=== PATIENT | female | born 1975 | race African-American/Black ===

== ENCOUNTER 2016-10-25 10:15 | Emergency (ER) | payer SELFPAY ==
[~2016-10-25] VITALS: Ht 157.5 cm; Wt 64.0 kg
[~2016-10-25 10:15] MED LIST: BACT800T5 PO; DAPA1TAB2 PO; LANTUS2P SQ
[2016-10-25 10:17] VITALS: BP 119/78; PULSE 89; RESP 14; TEMP 98.1; O2SAT 99
[2016-10-25] MEDS ORDERED: IBUPROFEN 600 MG TAB PO ONE (11:00)
[2016-10-25] MEDS ORDERED: LANTUS2P SQ ×2 (11:05→11:49)
[2016-10-25 11:09] LABS: AUTOMATED NEUTROPHIL # 3.8 TH/MM3 (1.8-7.7); BASOPHIL % 0.8 % (0.0-2.0); EOSINOPHIL % 0.5 % (0.0-4.0); HEMATOCRIT 38.9 % (35.0-46.0); HEMO FLAGS DIFF FINAL; LYMPH % 27.1 % (9.0-44.0); LYMPHOCYTE # 1.6 TH/MM3 (1.0-4.8); MEAN CELL VOLUME 82.1 FL (80.0-100.0); MEAN CORPUSCULAR HEMOGLOBIN 27.6 PG (27.0-34.0); MEAN CORPUSCULAR HGB CONC 33.6 % (32.0-36.0); MONO % 6.3 % (0.0-8.0); NEUT % 65.3 % (16.0-70.0); PLATELET COUNT 250 TH/MM3 (150-450); RED BLOOD COUNT 4.74 MIL/MM3 (4.00-5.30); RED CELL DISTRIBUTION WIDTH 12.7 % (11.6-17.2); WHITE BLOOD COUNT 5.8 TH/MM3 (4.0-11.0)
[2016-10-25 11:11] LABS: BACTERIA, URINE FEW /hpf; BLOOD, URINE SMALL (NEG); COMMENT (UR) CULTURE INDICATED; CULTURE IF INDICATED CULTURE INDICATED; GLUCOSE,URINE 1000 mg/dL (NEG); KETONE, URINE TRACE mg/dL (NEG); MUCUS URINE FEW /lpf (OCC); NITRITE,URINE NEG (NEG); SQUAMOUS EPITHELIAL CELL URINE 1 /hpf (0-5); URINE COLOR LIGHT-YELLOW (YELLW/STRAW)
[2016-10-25] MEDS ORDERED: CIPR-9 PO (11:44)
--- NOTE | 2016-10-25 11:44 | PD ---
HPI Chief Complaint: Related Problem Time Seen by Provider: 10:41 Travel History International Travel<30 days: No Contact w/Intl Traveler<30days: No Traveled to known affect area: No History of Present Illness HPI Patient is a 41 year old female who comes in complaining of vaginal bleeding. She says that she has had bleeding on and off since July. She reports taking a test a few weeks ago and says it was positive then. She complains of low back pain and lower abdominal pain. She denies any nausea or vomiting, fever or chills. She says she feels lightheaded when she stands up. She denies chest pain, palpitations, SOB. She has had a tubal ligation, but says she had a miscarriage in May. She says she has been feeling down lately since her son . She denies any SI or HI. PFSH Past Medical History Arthritis: Yes (POSSIBLE RA) Asthma: No Autoimmune Disease: No Blood Disorders: No Anxiety: No Depression: No Cancer: No Cardiovascular Problems: No Chemotherapy: No Diabetes: Yes Diminished Hearing: No Endocrine: Yes Glaucoma: No Genitourinary: No Headaches: No Hypertension: No Immune Disorder: No Implanted Vascular Access Dvce: No Kidney Stones: Yes Musculoskeletal: No Neurologic: Yes (neuropathy) Psychiatric: No Reproductive: No Respiratory: No Immunizations Current: Yes Migraines: No Radiation Therapy: No Renal Failure: No Seizures: No Sickle Cell Disease: No Thyroid Disease: No PNEUMOCCOCAL Vaccine (Year): 2 ?: Menopausal: No : 5 Para: 4 Miscarriage: 1 : 0 Ovarian Cysts: Yes Tubal Ligation: Yes Past Surgical History Abdominal Surgery: Yes AICD: No Cardiac Surgery: No Section: Yes (X 1) Ear Surgery: No Endocrine Surgery: No Eye Surgery: No Genitourinary Surgery: No Gynecologic Surgery: Yes ( ) Neurologic Surgery: No Oral Surgery: No Pacemaker: No Thoracic Surgery: No Other Surgery: No Social History Alcohol Use: Yes (OCCASSIONAL ) Tobacco Use: No Substance Use: Yes (HX MARIJUANA ) Allergies-Medications (Allergen,Severity, Reaction): Coded Allergies: No Known Allergies (Verified , 10/25/16) Reported Meds & Prescriptions Reported Meds & Active Scripts Active Cipro (Ciprofloxacin HCl) 500 Mg Tab 500 Mg PO BID 5 Days Reported Lantus Inj (Insulin Glargine) 1,000 Unit/10 Ml Vial 35 Units SQ HS Review of Systems Except as stated in HPI: all other systems reviewed are Neg General / Constitutional: No: Fever, Chills Eyes: No: Blurred Vision HENT: Positive: Lightheadedness, No: Headaches Cardiovascular: No: Chest Pain or Discomfort, Palpitations Respiratory: No: Shortness of Breath Gastrointestinal: Positive: Abdominal Pain, No: Nausea, Vomiting Genitourinary: Positive: Vaginal Bleeding Musculoskeletal: Positive: Pain Skin: No Rash, No Change in Pigmentation Neurologic: No: Weakness Physical Exam Narrative GENERAL: Awake and alert, in no acute distress. SKIN: Focused skin assessment warm/dry. HEAD: Atraumatic. Normocephalic. EYES: Pupils equal and round. No scleral icterus. Conjunctiva do not appear pale. ENT: Mucous membranes pink and moist. NECK: Trachea midline. No JVD. CARDIOVASCULAR: Regular rate and rhythm. No murmur appreciated. RESPIRATORY: No accessory muscle use. Clear to auscultation. Breath sounds equal bilaterally. GASTROINTESTINAL: Abdomen soft, nondistended. Mild suprapubic tenderness, no rebound or guarding. No CVA tenderness. : Small amount of active bleeding, no CMT. MUSCULOSKELETAL: No obvious deformities. No clubbing. No cyanosis. No edema. NEUROLOGICAL: Awake and alert. No obvious cranial nerve deficits. Motor grossly within normal limits. Normal speech. PSYCHIATRIC: Appropriate mood and affect; insight and judgment normal. Data Data Last Documented VS Vital Signs Date Time Temp Pulse Resp B/P Pulse Ox O2 Delivery O2 Flow Rate FiO2 10/25/16 10: 98.1 89 14 119/78 99 Orders Urinalysis - C+S If Indicated (10/25/16 10:41) Ed Urine Pregnancytest Poc (10/25/16 10:41) Complete Blood Count With Diff (10/25/16 10:54) Ibuprofen (Motrin) (10/25/16 11:00) Urine Culture (10/25/16 10:55) Labs Laboratory Tests Test 10/25/16 10:55 White Blood Count 5.8 TH/MM3 Red Blood Count 4.74 MIL/MM3 Hemoglobin 13.1 GM/DL Hematocrit 38.9 % Mean Corpuscular Volume 82.1 FL Mean Corpuscular Hemoglobin 27.6 PG Mean Corpuscular Hemoglobin 33.6 % Concent Red Cell Distribution Width 12.7 % Platelet Count 250 TH/MM3 Mean Platelet Volume 9.2 FL Neutrophils (%) (Auto) 65.3 % Lymphocytes (%) (Auto) 27.1 % Monocytes (%) (Auto) 6.3 % Eosinophils (%) (Auto) 0.5 % Basophils (%) (Auto) 0.8 % Neutrophils # (Auto) 3.8 TH/MM3 Lymphocytes # (Auto) 1.6 TH/MM3 Monocytes # (Auto) 0.4 TH/MM3 Eosinophils # (Auto) 0.0 TH/MM3 Basophils # (Auto) 0.0 TH/MM3 CBC Comment DIFF FINAL Differential Comment Urine Color LIGHT-YELLOW Urine Turbidity HAZY Urine pH 6.0 Urine Specific [place] 1.011 Urine Protein TRACE mg/dL Urine Glucose (UA) 1000 mg/dL Urine Ketones TRACE mg/dL Urine Occult Blood SMALL Urine Nitrite NEG Urine Bilirubin NEG Urine Urobilinogen LESS THAN 2.0 MG/DL Urine Leukocyte Esterase MOD Urine RBC LESS THAN 1 /hpf Urine WBC 17 /hpf Urine Squamous Epithelial 1 /hpf Cells Urine Bacteria FEW /hpf Urine Mucus FEW /lpf Microscopic Urinalysis Comment CULTURE INDICATED MDM Medical Decision Making Medical Screen Exam Complete: Yes Emergency Medical Condition: Yes Medical Record Reviewed: Yes Differential Diagnosis UTI vs anemia vs Narrative Course Patient is a 41 year old female complaining of vaginal bleeding. Exam shows small amount of bleeding. CBC shows Hgb of 13. Urinalysis positive for bacteria. Patient given Ibuprofen for pain. Will discharge with prescription for Cipro which is free at [facility]. Advised to follow up with physician office rep for continued bleeding. Advised to return to the ED as needed for any worsening symptoms. Diagnosis Primary Impression: UTI (lower urinary tract infection) Additional Impression: Vaginal bleeding Patient Instructions: Dysfunctional Uterine Bleeding (ED), General Instructions , Urinary Tract Infection in Women (ED) Additional Instructions: Follow up with physician office rep, or the health department. Take all of your antibiotics. Drink plenty of fluids. Return to the ED as needed for any worsening symptoms. Scripts Insulin Glargine Inj (Lantus Inj)1,000 Unit/10 Ml Vial35 Units SQ HS 30 Days Ref 0 Prov:Holly Hernandez MD 10/25/16 Ciprofloxacin (Cipro)500 Mg Qag164 Mg PO BID 5 Days Ref 0 Prov:Holly Hernandez MD 10/25/16 Disposition: 01 DISCHARGE HOME Condition: Stable Holly Hernandez MD Oct 25, 2016 11:44
== END 2016-10-25 11:52 | disposition home or self-care (01) ==
LOC: NEPD 10:15
DX: N39.0 Urinary tract infection, site not specified (principal); B96.20 Unspecified Escherichia coli [E. coli] as the cause of diseases classified elsewhere; E11.9 Type 2 diabetes mellitus without complications; N93.9 Abnormal uterine and vaginal bleeding, unspecified; Z79.4 Long term (current) use of insulin; Z87.442 Personal history of urinary calculi
CPT/HCPCS: 81001; 84703; 85025; 87077; 87086; 87186; 99284

== ENCOUNTER 2017-03-25 21:54 | Emergency (ER) | payer SELFPAY ==
[~2017-03-25] VITALS: Ht 157.5 cm; Wt 62.0 kg
[~2017-03-25 21:54] MED LIST changes: -BACT800T5 PO; +CIPR-9 PO; -DAPA1TAB2 PO
[2017-03-25 21:55] VITALS: BP 184/79; PULSE 97; RESP 16; TEMP 99.1; O2SAT 100
--- NOTE | 2017-03-25 22:28 | PD ---
HPI Chief Complaint: Diabetic Time Seen by Provider: 22:19 Travel History International Travel<30 days: No Contact w/Intl Traveler<30days: No Traveled to known affect area: No History of Present Illness HPI PATIENT IS A TYPE 2 DIABETIC, THAT STATES TODAY HAS BEEN FEELING LIGHT HEADED DIZZY AND THIS IS HOW SHE FEELS WHEN HER BLOOD SUGAR IS OUT OF CONTROL. PATIENT ALSO C/O HEAD PRESSURE, NONRAD, 4/10, BLURRY VISION AND URINATING A LOT. PER PT SHE HAS BEEN OUT OF MEDS FOR AT LEAST 3 WEEKS BECAUSE OF NO INSULIN AND NO PCP ANY MORE. PFSH Past Medical History Arthritis: Yes (POSSIBLE RA) Asthma: No Autoimmune Disease: No Blood Disorders: No Anxiety: No Depression: No Cancer: No Cardiovascular Problems: No Chemotherapy: No Diabetes: Yes Diminished Hearing: No Endocrine: Yes Glaucoma: No Genitourinary: No Headaches: No Hypertension: No Immune Disorder: No Implanted Vascular Access Dvce: No Kidney Stones: Yes Musculoskeletal: No Neurologic: Yes (neuropathy) Psychiatric: No Reproductive: No Respiratory: No Immunizations Current: Yes Migraines: No Radiation Therapy: No Renal Failure: No Seizures: No Sickle Cell Disease: No Thyroid Disease: No PNEUMOCCOCAL Vaccine (Year): 2 Menopausal: No : 5 Para: 4 Miscarriage: 1 : 0 Ovarian Cysts: Yes Tubal Ligation: Yes Past Surgical History Abdominal Surgery: Yes AICD: No Cardiac Surgery: No Section: Yes (X 1) Ear Surgery: No Endocrine Surgery: No Eye Surgery: No Genitourinary Surgery: No Gynecologic Surgery: Yes ( ) Neurologic Surgery: No Oral Surgery: No Pacemaker: No Thoracic Surgery: No Other Surgery: No Social History Alcohol Use: Yes (OCCASSIONAL ) Tobacco Use: No Substance Use: Yes (HX MARIJUANA ) Allergies-Medications (Allergen,Severity, Reaction): Coded Allergies: No Known Allergies (Verified , 03/25/17) Reported Meds & Prescriptions Reported Meds & Active Scripts Active Novolog Inj (Insulin Aspart) 1,000 Unit/10 Ml Vial 0 SQ DIRECTED Sliding Scale as directed. Reported [[place]] Lantus Inj (Insulin Glargine) 1,000 Unit/10 Ml Vial 35 Units SQ HS Review of Systems Except as stated in HPI: all other systems reviewed are Neg Eyes: Positive: Blurred Vision HENT: Positive: Lightheadedness Physical Exam Narrative GENERAL: SKIN: Warm and dry. HEAD: Atraumatic. Normocephalic. EYES: Pupils equal and round. No scleral icterus. No injection or drainage. ENT: No nasal bleeding or discharge. Mucous membranes pink and moist. NECK: Trachea midline. No JVD. CARDIOVASCULAR: Regular rate and rhythm. RESPIRATORY: No accessory muscle use. Clear to auscultation. Breath sounds equal bilaterally. GASTROINTESTINAL: Abdomen soft, non-tender, nondistended. MUSCULOSKELETAL: Extremities without clubbing, cyanosis, or edema. No obvious deformities. NEUROLOGICAL: Awake and alert. No obvious cranial nerve deficits. Motor grossly within normal limits. Five out of 5 muscle strength in the arms and legs. Normal speech. PSYCHIATRIC: Appropriate mood and affect; insight and judgment normal. Data Data Last Documented VS Vital Signs Date Time Temp Pulse Resp B/P (MAP) Pulse Ox O2 Delivery O2 Flow Rate FiO2 03/26/17 03:58 03/25/17 22:32 20 03/25/17 21:55 99.1 97 100 Room Air Orders Orders Complete Blood Count With Diff (03/25/17 22:19) Comprehensive Metabolic Panel (03/25/17 22:19) Ckmb (Isoenzyme) Profile (03/25/17 22:19) Troponin I (03/25/17 22:19) B-Type Natriuretic Peptide (03/25/17 22:19) Prothrombin Time / Inr (Pt) (03/25/17 22:19) Act Partial Throm Time (Ptt) (03/25/17 22:19) Lipase (03/25/17 22:19) Thyroid Stimulating Hormone (03/25/17 22:19) Chest, Single Ap (03/25/17 22:19) Ct Brain W/O Iv Contrast(Rout) (03/25/17 22:19) Ed Urine Pregnancytest Poc (03/25/17 22:19) Alcohol (Ethanol) (03/25/17 22:19) Salicylates (Aspirin) (03/25/17 22:19) Tylenol (Acetaminophen) (03/25/17 22:19) CKMB (03/25/17 22:36) CKMB% (03/25/17 22:36) Sodium Chlor 0.9% 1000 Ml Inj (Ns 1000 M (03/25/17 23:15) Labs Laboratory Tests Test 03/25/17 22:36 White Blood Count 7.8 TH/MM3 Red Blood Count 5.07 MIL/MM3 Hemoglobin 14.3 GM/DL Hematocrit 42.2 % Mean Corpuscular Volume 83.2 FL Mean Corpuscular Hemoglobin 28.2 PG Mean Corpuscular Hemoglobin Concent 33.9 % Red Cell Distribution Width 12.9 % Platelet Count 247 TH/MM3 Mean Platelet Volume 9.3 FL Neutrophils (%) (Auto) 56.0 % Lymphocytes (%) (Auto) 35.8 % Monocytes (%) (Auto) 6.6 % Eosinophils (%) (Auto) 0.5 % Basophils (%) (Auto) 1.1 % Neutrophils # (Auto) 4.3 TH/MM3 Lymphocytes # (Auto) 2.8 TH/MM3 Monocytes # (Auto) 0.5 TH/MM3 Eosinophils # (Auto) 0.0 TH/MM3 Basophils # (Auto) 0.1 TH/MM3 CBC Comment DIFF FINAL Differential Comment Prothrombin Time 9.8 SEC Prothromb Time International Ratio 0.9 RATIO Activated Partial Thromboplast Time 24.7 SEC Blood Urea Nitrogen 12 MG/DL Creatinine 0.84 MG/DL Random Glucose 282 MG/DL Total Protein 8.7 GM/DL Albumin 4.3 GM/DL Calcium Level 9.9 MG/DL Alkaline Phosphatase 126 U/L Aspartate Amino Transf (AST/SGOT) 9 U/L Alanine Aminotransferase (ALT/SGPT) 16 U/L Total Bilirubin 0.4 MG/DL Sodium Level 134 MEQ/L Potassium Level 3.1 MEQ/L Chloride Level 99 MEQ/L Carbon Dioxide Level 25.4 MEQ/L Anion Gap 10 MEQ/L Estimat Glomerular Filtration Rate 90 ML/MIN Total Creatine Kinase 138 U/L Creatine Kinase MB 1.3 NG/ML Troponin I LESS THAN 0.02 NG/ML B-Type Natriuretic Peptide LESS THAN 2 PG/ML Lipase 342 U/L Thyroid Stimulating Hormone 3rd Gen 2.150 uIU/ML Salicylates Level LESS THAN 1.7 MG/DL Acetaminophen Level LESS THAN 2.0 MCG/ML Ethyl Alcohol Level LESS THAN 3 MG/DL MDM Medical Decision Making Medical Screen Exam Complete: Yes Emergency Medical Condition: Yes Medical Record Reviewed: Yes Differential Diagnosis HYPERGLYCEMIA V UTI V STEMI V ICH V ELECTROLYTE ABNL V RENAL/LIVER DZ Narrative Course CXR IS NEG FOR ANY PNA, HEAD CT IS NEG FOR AN E/O ICH, OR SINUSITIS, BESIDES HYPERGLYCEMIA NO E/O DKA, NO E/O LIVER DZ OR PANCREATITIS, NO [place]. PATIENT WAS MILDLY DEHYDRATED. Diagnosis Primary Impression: HYPERGLYCEMIA Additional Impression: DEHYDRATION Patient Instructions: Dehydration (ED), Diabetic Hyperglycemia (ED), General Instructions Scripts Insulin Aspart Inj (Novolog Inj) 1,000 Unit/10 Ml Vial 0 SQ DIRECTED for Blood Sugar Management, #10 ML 0 Refills Sliding Scale as directed. Prov: Pola Wilde MD 03/26/17 Disposition: 01 DISCHARGE HOME Condition: Stable Pola Wilde MD Mar 25, 2017 22:28
[2017-03-25] MEDS ORDERED: NOVOLOGP2 SQ (22:31)
[2017-03-25] MEDS ORDERED: [UNRECOGNIZED DRUG - OTHER] (22:31)
[2017-03-25 22:46] LABS: AUTOMATED NEUTROPHIL # 4.3 TH/MM3 (1.8-7.7); BASOPHIL # 0.1 TH/MM3 (0-0.2); BASOPHIL % 1.1 % (0.0-2.0); EOSINOPHIL % 0.5 % (0.0-4.0); HEMATOCRIT 42.2 % (35.0-46.0); HEMO FLAGS DIFF FINAL; LYMPH % 35.8 % (9.0-44.0); LYMPHOCYTE # 2.8 TH/MM3 (1.0-4.8); MEAN CELL VOLUME 83.2 FL (80.0-100.0); MEAN CORPUSCULAR HEMOGLOBIN 28.2 PG (27.0-34.0); MEAN CORPUSCULAR HGB CONC 33.9 % (32.0-36.0); MONO % 6.6 % (0.0-8.0); PLATELET COUNT 247 TH/MM3 (150-450); RED BLOOD COUNT 5.07 MIL/MM3 (4.00-5.30); RED CELL DISTRIBUTION WIDTH 12.9 % (11.6-17.2); WHITE BLOOD COUNT 7.8 TH/MM3 (4.0-11.0)
[2017-03-25 23:00] LABS: APTT (PATIENT) 24.7 SEC (24.3-30.1); INTERNATIONAL NORMALIZED RATIO 0.9 RATIO; PROTHROMBIN TIME - PATIENT 9.8 SEC (9.8-11.6)
[2017-03-25 23:02] LABS: ALT (GPT) 16 U/L (10-53); ANION GAP 10 MEQ/L (5-15); AST (GOT) 9 U/L (15-37); BICARBONATE 25.4 MEQ/L (21.0-32.0); BLOOD UREA NITROGEN 12 MG/DL (7-18); CHLORIDE 99 MEQ/L (98-107); GLOMERULAR FILTRATION RATE 90 ML/MIN (>89); POTASSIUM 3.1 MEQ/L (3.5-5.1); SODIUM (NA) 134 MEQ/L (136-145)
--- NOTE | 2017-03-25 23:03 | RADRPT ---
EXAM DATE/TIME: 03/25/2017 22:26 [facility] COMPARISON: No previous studies available for comparison. INDICATIONS : Short of breath. MEDICAL HISTORY : Renal calculi. Diabetes mellitus type II. SURGICAL HISTORY : Tubal ligation. section. ENCOUNTER: Initial ACUITY: 1 day PAIN SCORE: 0/10 LOCATION: Bilateral chest FINDINGS: A single view of the chest demonstrates the lungs to be symmetrically aerated without evidence of mas s, infiltrate or effusion. The cardiomediastinal contours are unremarkable. Osseous structures are intact. CONCLUSION: No evidence of acute cardiopulmonary disease. Omar Beck MD on March 25, 2017 at 23:02 Board Certified Radiologist. This report was verified electronically.
[2017-03-25 23:11] LABS: ALCOHOL LESS THAN 3 MG/DL (0-5); ALKALINE PHOSPHATASE 126 U/L (45-117); CREATINE KINASE 138 U/L (26-192); TOTAL BILIRUBIN ADULT 0.4 MG/DL (0.2-1.0)
[2017-03-25 23:15] LABS: ACETAMINOPHEN LESS THAN 2.0 MCG/ML (10.0-30.0)
[2017-03-25] MEDS ORDERED: SODIUM CHLOR 0.9% 1000 ML INJ 1,000 ML IV ONE (23:15)
--- NOTE | 2017-03-25 23:17 | RADRPT ---
EXAM DATE/TIME: 03/25/2017 22:55 [facility] COMPARISON: CT BRAIN W/O CONTRAST, August 28, 2015, 2:08. INDICATIONS : Patient complains of dizziness. RADIATION DOSE: 69.15 CTDIvol (mGy) MEDICAL HISTORY : Diabetes mellitus type 1. kidney stone SURGICAL HISTORY : Tubal ligation. ENCOUNTER: Initial ACUITY: 1 day PAIN SCALE: 0/10 LOCATION: cranial TECHNIQUE: Multiple contiguous axial images were obtained of the head. Using automated exposure control and adj ustment of the mA and/or kV according to patient size, radiation dose was kept as low as reasonably a chievable to obtain optimal diagnostic quality images. DICOM format image data is available electro nically for review and comparison. FINDINGS: CEREBRUM: The ventricles are normal for age. No evidence of midline shift, mass lesion, hemorrhage or acute in farction. No extra-axial fluid collections are seen. POSTERIOR FOSSA: The cerebellum and brainstem are intact. The 4th ventricle is midline. The cerebellopontine angle i s unremarkable. EXTRACRANIAL: The visualized portion of the orbits is intact. SKULL: The calvaria is intact. No evidence of skull fracture. CONCLUSION: Normal examination for a patient of this age. No significant change has occurred. Hermelindo Gamboa MD on March 25, 2017 at 23:12 Board Certified Radiologist. This report was verified electronically.
[2017-03-25 23:25] LABS: CKMB 1.3 NG/ML (0.5-3.6)
[2017-03-26] MEDS ORDERED: NOVOLOGP2 SQ (02:29)
== END 2017-03-26 03:59 | disposition home or self-care (01) ==
LOC: NEPE 21:54
DX: E11.65 Type 2 diabetes mellitus with hyperglycemia (principal); E86.0 Dehydration; H53.8 Other visual disturbances; R42 Dizziness and giddiness; E11.40 Type 2 diabetes mellitus with diabetic neuropathy, unspecified; M19.90 Unspecified osteoarthritis, unspecified site; Z87.442 Personal history of urinary calculi; Z79.4 Long term (current) use of insulin
CPT/HCPCS: 70450; 71010; 80053; 80307; 82550; 82552; 83690; 83880; 84443; 84484; 84703; 85025; 85610; 85730; 99285; J7030